=== PATIENT | male | born 1935 | race Caucasian/White ===

== ENCOUNTER → 2016-06-10 | Outpatient (CLI) | payer MEDICARE ==
[~2016-06-10] MED LIST: /ALEN70TA OR; ASPI81TA63 OR; IBUP400T OR; VIT D 2000 PO; VITA250T OR; citracal PO; travatan OU
[2016-06-10 14:39] LABS: CALCIUM LEVEL 8.6 MG/DL (8.8-10.2); CREATININE FOR GFR 1.49 MG/DL (0.70-1.30); GLOMERULAR FILTRATION RATE 48.1 (>35); POTASSIUM SERUM 4.3 MEQ/L (3.5-5.1)
[2016-06-10 15:15] LABS: MEAN CORPUSCULAR HEMOGLOBIN 30.8 pg (27.0-33.0); MEAN CORPUSCULAR HGB CONC 31.4 g/dl (32.0-36.5); MEAN CORPUSCULAR VOLUME 98.1 fl (80.0-96.0); RED CELL DISTRIBUTION WIDTH 13.6 % (11.5-14.5); WHITE BLOOD COUNT 6.6 K/mm3 (4.0-10.0)
== END ==
LOC: M LAB 14:03
PROVIDERS: ATTEND Internal Medicine Cardiovascular Disease
DX: I12.9 Hypertensive chronic kidney disease with stage 1 through stage 4 chronic kidney disease, or unspecified chronic kidney disease (principal); N18.9 Chronic kidney disease, unspecified; I42.9 Cardiomyopathy, unspecified; I38 Endocarditis, valve unspecified

== ENCOUNTER 2023-06-28 19:29 | Observation (INO) | payer MEDICARE ==
[~2023-06-28] VITALS: Ht 182.9 cm; Wt 78.4 kg
[2023-06-28] MEDS: NS 2,360 ML in IV 1 EA IV ONE (19:48)
[2023-06-28 20:16] LABS: MEAN CORPUSCULAR HEMOGLOBIN 30.3 pg (27.0-33.0); MEAN CORPUSCULAR HGB CONC 30.3 g/dl (32.0-36.5); PLATELET COUNT, AUTOMATED 114 10^3/uL (150-450); RED BLOOD COUNT 1.45 10^6/uL (4.30-6.10); WHITE BLOOD COUNT 4.2 10^3/uL (4.0-10.0)
[2023-06-28 20:20] LABS: HEMATOCRIT 14.5 % (42.0-52.0); HEMOGLOBIN 4.4 g/dl (13.5-17.5)
[2023-06-28 20:38] LABS: AMPHETAMINES LEVEL URINE NEGATIVE (NEGATIVE); BARBITURATES URINE NEGATIVE (NEGATIVE); BENZODIAZEPINES URINE NEGATIVE (NEGATIVE); CANNABINOIDS URINE NEGATIVE (NEGATIVE); COCAINE METABOLITE URINE NEGATIVE (NEGATIVE); METHADONE URINE NEGATIVE (NEGATIVE); OPIATES URINE NEGATIVE (NEGATIVE); PHENCYCLIDINE URINE NEGATIVE (NEGATIVE)
[2023-06-28 20:47] LABS: LYMPHOCYTES 9 % (16-44); MONOCYTES 2 % (0-5); NEUTROPHILS 86 % (28-66)
[2023-06-28 20:48] LABS: ANISOCYTOSIS 2+; PLATELET ESTIMATE DECREASED (NORMAL)
[2023-06-28] MEDS: MORPHINE 2 MG/ML 1ML VIAL IV ONE (20:48)
[2023-06-28 20:49] LABS: HYPOCHROMASIA 1+
[2023-06-28] MEDS: ONDANSETRON 4MG 2ML VIAL IV ONE (21:12)
[2023-06-28] MEDS: SCOPOLAMINE 1MG TRANSDERMAL PATCH TOP SCH (21:20)
[2023-06-28] MEDS ORDERED: ONDANSETRON 4MG ORAL DISINTEGRATING TAB PO PRN (22:20)
[2023-06-28] MEDS ORDERED: ACETAMINOPHEN 650MG SUPP PR PRN (22:20)
[2023-06-28] MEDS ORDERED: LORazepam 1 MG TAB PO PRN (22:20)
[2023-06-28 22:38] VITALS: BP 83/51; TEMP 93.4
[2023-06-28 22:51] VITALS: O2SAT 85
[2023-06-28] MEDS: MORPHINE 10MG/0.5ML ORAL CONCENTRATE SOLUTION U/D SL PRN (23:38)
[2023-06-29] MEDS ORDERED: MORPHINE 2 MG/ML 1ML VIAL IV ONE (00:45)
[2023-06-29] MEDS ORDERED: LORazepam 2 MG/ML 1ML VIAL IV PRN (01:00)
[2023-06-29] MEDS ORDERED: HOME MED LIST COMPLETE! XX SCH (08:30)
== END 2023-06-29 09:15 | disposition expired ==
LOC: EDBD 19:29 → M ED 19:29 → M ED INP 19:30 → ENRESERV 22:48 → M MS5PR 23:30
PROVIDERS: ADMIT Internal Medicine; ATTEND Internal Medicine
DX: I95.9 Hypotension, unspecified (principal); N39.0 Urinary tract infection, site not specified; A49.01 Methicillin susceptible Staphylococcus aureus infection, unspecified site; A41.9 Sepsis, unspecified organism; R68.0 Hypothermia, not associated with low environmental temperature; D64.9 Anemia, unspecified; G93.40 Encephalopathy, unspecified; E87.6 Hypokalemia; R41.82 Altered mental status, unspecified; R06.02 Shortness of breath; R05.9 Cough, unspecified; M81.0 Age-related osteoporosis without current pathological fracture; M19.90 Unspecified osteoarthritis, unspecified site; R19.7 Diarrhea, unspecified; N40.0 Benign prostatic hyperplasia without lower urinary tract symptoms; I50.20 Unspecified systolic (congestive) heart failure; Z95.0 Presence of cardiac pacemaker; Z90.89 Acquired absence of other organs; Z90.81 Acquired absence of spleen; Z86.79 Personal history of other diseases of the circulatory system; Z86.73 Personal history of transient ischemic attack (TIA), and cerebral infarction without residual deficits; J43.9 Emphysema, unspecified; Z79.899 Other long term (current) drug therapy; Z79.82 Long term (current) use of aspirin; Z66 Do not resuscitate; Z51.5 Encounter for palliative care
CPT/HCPCS: 51702; 80307; 81001; 82140; 83605; 85025; 87040; 87077; 87088; 87186; 87507; 93005; 93041; 94760; 96361; 96374; 96375; 99285; G0378; J2405